=== PATIENT | female | born 1960 | race Caucasian/White ===

== ENCOUNTER 2022-07-13 11:27 | Emergency (ER) | payer OTHER, SELFPAY ==
--- NOTE | ~2022-07-13 | XR_ITS ---
EXAMINATION: XR foot LT min 3V DATE: 07/13/2022 13:32 INDICATION: Generalized left foot pain after stepping off curb TECHNIQUE: Dorsoplantar, two oblique and lateral views of the left foot were obtained. COMPARISON: None. FINDINGS: Mildly comminuted fracture of the mid to distal diaphysis of the left fifth metatarsal with 2 separat e oblique fracture planes. One cortical width plantar/medial displacement of the more proximal fractu re plane. The more distal fracture plane remains nondisplaced. No other fractures identified. 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 Small Achilles and pl debra calcaneal spurs. Mild soft tissue swelling at the dorsolateral aspect of the forefoot. IMPRESSION: 1. Minimal displacement of a comminuted extra articular fracture of the mid to distal diaphysis of th e left fifth metatarsal. Reviewed, dictated and finalized at location A. SITE ADMIN IMPRESSION: 1. Minimal displacement of a comminuted extra articular fracture of the mid to distal diaphysis of the left fifth metatarsal.
[2022-07-13 13:04] VITALS: BP 154/92; PULSE 77; RESP 20; TEMP 36.5; O2SAT 99
--- NOTE | 2022-07-13 14:34 | PC.NURSE ---
Addendum entered by RAMONA MARIN 07/13/22 14:39: Resting in wheelchair waiting to see provider. Patient upset over the wait. Attempted to calm patient. Status report given Original Note: Laying on bed. Family at bedside. Resting easily. Apologized for the wait. Breathing easier. No diaphoresis.
--- NOTE | 2022-07-13 14:50 | ED.LOWEXIN ---
HPI - Extremity Injury (Lower) General Chief Complaint: Extremity Injury, Lower Stated Complaint: Left Foot Injury Time Seen by Provider: 07/13/22 14:50 Source: patient, RN notes reviewed and old records reviewed Mode of arrival: wheelchair Limitations: no limitations History of Present Illness HPI Narrative: Patient reports that she has been taking Ibuprofen and Tylenol and using ice to her foot. 62-year-old female who presents [facility] with complaints of pain to the left foot from injury when she stepped off of a curb and fell while in [place] and injured her left foot 5 days ago. Patient has bruising to the dorsal area of proximal toes and along the lateral aspect of her foot. Patient called her son who is radiologist at [facility] in [facility] and he recommended to her Dr Guzmán. Dr Guzmán is not combat control manager ortho today and patient will have to call his office to set up appointment tomorrow morning. Patient refused OCL to left foot, refused benton wrap and post op show and crutches. Patient states that she has been walking on it for 5 [place] and doesn't think is needed. Patient states that she is suppose to get scooter tomorrow. Patient refused also offer of pain medication for her discomfort. MD complaint: foot injury (left) Onset (ago): day(s) (5) Severity scale (1-10): 6 Treatments prior to arrival: cold therapy and other (benton wrap limited activity) Related Data Home Medications Medication Instructions Recorded Confirmed amlodipine 5 mg-benazepril 10 mg cap 07/13/22 capsule Allergies Allergy/AdvReac Type Severity Reaction Status Date / Time Penicillins Allergy Unknown Rash Verified 02/20/19 09:55 Review of Systems Review of Systems: CONSTITUTIONAL: Denies fever, chills, or sweats. CARDIOVASCULAR: Denies chest pain, palpitations, or edema. RESPIRATORY: Denies cough or dyspnea. SKIN: Denies rash or itching. Denies laceration or abrasions MUSCULOSKELETAL: Reports injury to her lateral aspect of her left foot with bruising and swelling NEUROLOGIC: Denies numbness, or weakness. All systems reviewed & are unremarkable except as noted in HPI and below PMFSH Past Medical History Medical History (Updated 07/15/22 @ 21:45 by Ana Luisa Medina NP) Hypertension Surgical History Surgical History (Updated 07/15/22 @ 21:42 by Ana Luisa Medina NP) H/O hysterectomy with unilateral oophorectomy Social History Social History (Updated 07/15/22 @ 21:42 by Ana Luisa Medina NP) Smoking status: Former smoker Alcohol intake: current Alcohol use details: social Living arrangements: with family Gender identity (if verbalized by the patient): Female Comments At time of signature, agree with nursing past medical, surgical, social and family history. There is no relevant family history pertinent to the presenting complaint Exam Narrative: GENERAL: Well-appearing, well-nourished, and in no acute distress. HEAD: Normocephalic, atraumatic. EYES: PERRLA and EOMI. ENT: Nares clear, no rhinorrhea or epistaxis. Mucous membranes moist. NECK: Supple.no lymphadenopathy CHEST: Clear to auscultation. No respiratory distress. HEART: Regular rate and rhythm. No murmur heard. Normal peripheral pulses. ABDOMEN: Soft, nontender, nondistended, normal active bowel sounds. EXTREMITIES: Normal range of motion. No edema.Exception noted to left lateral foot which is swollen and bruised with discomfort lateral left foot, bruiing along proximal toes also, pulses strong right foot with foot warm and pink. SKIN: Warm, dry, no rash. NEURO: No focal deficits. Alert and oriented x3. Distal pulses palpable and equal bilaterally, skin warm, dry, pink. Capillary refill less than 3 seconds. Course Course Emergency Course: Patient is aware of diagnosis, understands and agrees to treatment plan. Anticipatory guidance given. Patient agrees to follow-up as directed and is aware of reasons to seek care at the emergency de
== END 2022-07-13 15:45 | disposition home or self-care (01) ==
PROVIDERS: Emergency Provider Registered Nurse
DX: S92.352A Displaced fracture of fifth metatarsal bone, left foot, initial encounter for closed fracture (principal); W19.XXXA Unspecified fall, initial encounter
CPT/HCPCS: 73630; 99203; G0463